=== PATIENT | male | born 1950 | race Caucasian/White ===

== ENCOUNTER 2017-05-23 01:57 | Emergency (ER) | payer OTHER, MEDICARE ==
[~2017-05-23] VITALS: Ht 170.2 cm; Wt 79.5 kg
[~2017-05-23 01:57] MED LIST: BUTA1CAP16 PO; CYA1000I IM; FLUT16SP2 NS; HYDR-3797 PO; IBUP800T28 PO; LEVO150T46 PO; LISI10TA2 PO; MORP30TA91 PO; OXYC-245 PO; SILD100T PO; TRAZ-115 PO
[2017-05-23 02:02] VITALS: BP 163/90; PULSE 91; RESP 26; O2SAT 99
[2017-05-23 02:21] LABS: BASOPHILS % (AUTO) 0.1 % (0-3); EOSINOPHILS % (AUTO) 8.7 % (0-5); MONOCYTES % (AUTO) 6.6 % (4-12); Mean Corpuscular Hemoglobin 32.3 pg (27.0-35.0); Mean Corpuscular Volume 94.2 fL (81-100); Platelet Count 239 bil/L (150-400)
--- NOTE | 2017-05-23 02:24 | ED.REPORT ---
HPI-Abd Pain M 40 and Over Date of Service May 23, 2017 ED Provider: Clyde Sharp MD Pt is a 67 y/o male w/ a hx of chronic pain with opiate dependence, HTN, presenting to the ED c/o waxing and waning right-sided abdominal pain w/ radiation to the back onset 3.5 hours ago. His pain seems to wax and wane in severity every 10-15 minutes. He c/o associated nausea. Pt denies constipation, diarrhea, bloody stools, fever, chills. The pain does not increase after eating and he has never experienced similar symptoms. The patient had an ERCP performed on 06/27/2014 for RUQ pain with a dilated common bile duct and was found to have sludge without stones and had a sphincterotomy performed. Nursing Notes Stated Complaint: STOMACH PAIN Chief Complaint: Male Abdominal Pain Nursing Notes Reviewed: Yes Allergies: Coded Allergies: No Known Allergies (Verified Allergy, Unknown, 05/23/17) Scheduled Cyanocobalamin (Cyanocobalamin Injection) 1,000 Mcg/1 Ml Vial 1,000 MCG IM Monthly Fluticasone Propionate (Flonase Nasal) 16 Gm [place].susp 2 SPRAYS NS BID Levothyroxine (Levoxyl) 150 Mcg Tablet 150 MCG PO DAILY Lisinopril (Lisinopril) 10 Mg Tablet 10 MG PO DAILY Morphine Sulfate CR (Morphine Sulfate CR) 30 Mg Tablet.er 30 MG PO Q12 Trazodone (Trazodone) 50 Mg Tablet 50 MG PO HS Scheduled PRN Butalbital/Aspirin/Caff 50-325-40 mg (Fiorinal 50-325-40 mg) 1 Each Capsule 1 EACH PO Q4 PRN PRN For Pain Hydroxyzine Pamoate (HydrOXYzine Pamoate) 25 Mg Capsule 25 MG PO Q6 PRN PRN For Spasm Ibuprofen (Ibuprofen) 800 Mg Tablet 800 MG PO QID PRN PRN For Pain Oxycodone HCl/Acetaminophen (Percocet 10-325 mg Tablet) 1 Each Tablet 1-2 EACH PO Q4 PRN PRN For Pain Sildenafil Citrate (Viagra) 100 Mg Tablet 100 MG PO UD PRN PRN OTHER General Time Seen by MD: 02:19 Chief Complaint Abdominal pain Hx Obtained From: Patient Arrived By: Walk-in Sudden in Onset?: Yes Onset Occurred: 1 - 4 hours ago Symptom Duration: Since onset Progression since Onset: Constant Location: : RLQ: RUQ Quality: Painful Radiation: : Back Severity: Current: Moderate Severity: Maximum: Severe Similar Sx Previous: No Past Medical History Past Medical History Notes: Narcotic medications: 04/05/17: Oxycodone-Acetaminophen 10-325 #180 04/05/17: Morphine Sulf ER 15 mg #60 04/05/17: Dgyvkzvbaj-QHF-Fsilhavz #90 Past Medical History Kidney stones x3 Hx hepatitis in childhood Erectile dysfunction Hypothyroid Hypertension Low back pain with sciatica Chronic neck pain Vitamin B12 deficiency Lumbar DDD Benign prostatic hypertrophy Thoracic DDD Osteoarthritis Chronic headaches Past Surgical History ERCP and sphincterotomy with sludge extraction 2014 Colonoscopy 2012 - negative Cervical vertebre fusion with a bone graft from right hip - 2000 Back x3 Right knee arthroscopy Smoking History Former Smoker Ambulatory Status Independent Review of Systems Constitutional: Denies: Chills, Fever Respiratory: Denies: Non-productive cough, Shortness of breath Cardiovascular: Denies: Chest pain GI: Reports: Abdominal pain Complete sys rev & neg: except as marked. Physical Exam Initial Vital Signs Vital Signs (First) Date Time Temp Pulse Resp B/P Pulse Ox O2 Delivery O2 Flow Rate FiO2 05/23/17 02:02 35.8 91 26 163/90 99 Room Air Initial VS: Reviewed, Vital signs abnormal Head / Eyes: Atraumatic, Normocephalic, PERRL ENT: Mucous membranes moist, Conjunctiva normal, No scleral icterus Neck: Supple, Full range of motion Extremities: Vascular intact, Neuro intact, No swelling Skin: Warm, Dry, No cyanosis Neurologic: Alert, Oriented, Nonfocal Psychiatric: Mood/affect normal, Behavior normal, Normal thought content General/Constitutional: Awake, Alert, Cooperative, Not toxic appearing Distress / Hydration: Positive: Distress moderate Appearance / Presentation: Positive: In pain, Uncomfortable Respiratory / Chest: Breath sounds NL, Breath sounds = bilat, No respiratory distress, No rales, No rhonchi, No wheezing, No retractions, No stridor Cardiovascular: Heart rate NL, Regular rhythm, Heart sounds NL, No gallop, No murmurs, No rubs, Cap refill not delayed, Peripheral circulation NL, Pulses = bilaterally Abdomen: Atraumatic, No rebound, No palpable mass, No pulsatile mass Bowel Sounds / Distention: Positive: Distention mild Diffusely tender with guarding, no localization Back: Full range of motion, Painless range of motion, No CVA tenderness Interpretation & Diagnostics Lab Results Interpretation Result Diagram: 05/23/17 0211 05/23/17 0211 Test 05/23/17 02:11 05/23/17 02:40 White Blood Count 6.7th/mm3 (3.8-10.1) Red Blood Count 4.15mil/mm3 (4.40-5.80) Hemoglobin 13.4g/dL (13.8-17.2) Hematocrit 39.1% (41.0-50.0) Mean Corpuscular Volume 94.2fL (81-100) Mean Corpuscular Hemoglobin 32.3pg (27.0-35.0) Mean Corpuscular Hemoglobin Concent 34.3% (32.0-37.0) Red Cell Distribution Width 12.2% (12.3-15.4) Platelet Count 239bil/L (150-400) Neutrophils (%) (Auto) 50.0% (40-74) Lymphocytes (%) (Auto) 34.5% (14-46) Monocytes (%) (Auto) 6.6% (4-12) Eosinophils (%) (Auto) 8.7% (0-5) Basophils (%) (Auto) 0.1% (0-3) Sodium Level 140mEq/L (134-144) Potassium Level 3.5mEq/L (3.5-5.2) Chloride Level 100mEq/L (97-108) Carbon Dioxide Level 26mmol/L (18-29) Blood Urea Nitrogen 10mg/dL (8-27) Creatinine 1.10mg/dL (0.76-1.27) Estimat Glomerular Filtration Rate 71mL/min (>59) Glucose Level 165mg/dL (60-99) Calcium Level 9.2mg/dL (8.5-10.1) Magnesium Level 1.9mg/dL (1.6-2.6) Total Bilirubin 0.2mg/dL (0.0-1.2) Aspartate Amino Transf (AST/SGOT) 20U/L (0-50) Alanine Aminotransferase (ALT/SGPT) 15U/L (0-44) Alkaline Phosphatase 63U/L (25-160) Total Protein 6.9g/dL (6.4-8.4) Albumin 4.2g/dL (3.4-5.0) Lipase 23U/L (13-60) Urine Color Yellow (YELLOW) Urine Appearance Clear (CLEAR,HAZY) Urine pH 5.0 (5.0-8.0) Urine Specific [place]le 1.025 (1.003-1.035) Urine Protein Negativemg/dL (NEG,TRACE) Urine Glucose (UA) Negativemg/dL (NEGATIVE) Urine Ketones Negativemg/dL (NEGATIVE) Urine Occult Blood Negative (NEGATIVE) Urine Nitrite Nn (NEGATIVE) Urine Bilirubin Negative (NEGATIVE) Urine Urobilinogen Normalmg/dL (NORMAL) Urine Leukocyte Esterase Negative (NEGATIVE) Urine RBC 0-2/hpf (0-2) Urine WBC 0-5/hpf (0-5) Urine Epithelial Cells Occasional/hpf (NONE-MOD) Urine Crystals None seen (NONE SEEN) Urine Bacteria None/hpf (NONE-FEW) Urine Hyaline Casts Rare/lpf (NONE) Urine Granular Casts None seen (NONE SEEN) Urine Waxy Casts None seen (NONE SEEN) Urine Red Blood Cell Casts None seen (NONE SEEN) Urine White Blood Cell Casts None seen (NONE SEEN) Urine Mucus Present (None Seen) Urine Trichomonas None seen (NONE SEEN) Urine Yeast None (NONE SEEN) Urinalysis Comment None Urine Culture Reflexed Not indicated Lab values outside NL range: no clinical significance. CT Abd / Pelvis Interpretation Conclusion: Distended hydropic gallbladder measuring 4.8 cm in diameter. No radio opaque stones or wall thickening identified. Mild urinary ladder wall thickening may be due to cystitis or bladder outlet obstruction. Interpreted by Flo Russo MD at 03:34 Study type: Abdominal CT IV contrast Interpretation / Wet Read by: Interpret - Radiologist Re-Eval/Medical Decision Med Decision/Clinical Course 67-year-old male with very high-dose chronic pain medication usage presents with abdominal pain. His pain resolved with minimal IV pain medication. His labs were all normal. His CT scan of his abdomen showed only fluid-filled gallbladder without stones or evidence of inflammation. He is encouraged to follow-up with Dr. Pedraza and/or Dr. Garcia for a planned for further evaluation and treatment. Time of Eval: 04:01 Re-Evaluation/Progress Note: Pt rechecked. Now comfortable with pain controled. Discussed CT findings. He does not get pain after eating. Counseled Regarding: Diagnosis, Lab results, Need for follow-up, When/why to return to ED Discharge & Departure Primary Impression: Enlarged gallbladder Additional Impression: Abdominal pain Abdominal location: unspecified location Qualified Code: R10.9 - Unspecified abdominal pain Disposition: Home Vital Signs - All Vital Signs Date Time Temp Pulse Resp B/P Pulse Ox O2 Delivery O2 Flow Rate FiO2 05/23/17 04:25 76 16 137/82 97 Room Air 05/23/17 02:02 35.8 91 26 163/90 99 Room Air )( All Prior VS Reviewed: Yes Condition: Stable Patient Instructions: Biliary Colic (ED) Additional Instructions: Your gallbladder is enlarged on CT scan and I suspect that this is related to your pain. Avoid large meals and fatty foods. Follow-up with Dr. Pedraza (GI) or Dr. Garcia (general surgery) to discuss the significance of CT scan and what needs to be done next. Return here if he gets significant worsening of your pain again. Resume your regular home pain medicines.. Referrals: Corinne Ghosh MD (PCP) Scribe Attestation Portions of this note were transcribed by Magno Osullivan. I, Dr. Sharp personally performed the history, physical exam and medical decision-making; I reviewed and confirmed the accuracy of the information in the transcribed note. Signed by Mark Elise, 05/23/17 - 0300 copies to: Corinne Ghosh MD, Howard L MD May 23, 2017 02:24 MAGNO OSULLIVAN May 23, 2017 02:29
[2017-05-23] MEDS ORDERED: Ketorolac 15 mg/mL Inj IVPUSH ONE (02:25)
[2017-05-23] MEDS ORDERED: Ondansetron 2 mg/mL 2 mL Inj IVPUSH PRN (02:25)
[2017-05-23] MEDS: HYDROmorphone 0.5 mg/0.5 mL iSecure Syringe IVPUSH PRN ×3 (02:28→04:24)
[2017-05-23 02:43] LABS: Magnesium 1.9 mg/dL (1.6-2.6)
[2017-05-23 02:54] LABS: APPEARANCE,URINE CLEAR (CLEAR,HAZY); COLOR,URINE YELLOW (YELLOW); OCCULT BLOOD,URINE NEGATIVE (NEGATIVE); UROBILINOGEN,URINE NORMAL (NORMAL)
[2017-05-23 04:25] VITALS: BP 137/82; PULSE 76; RESP 16; O2SAT 97
--- NOTE | 2017-05-23 07:38 | DRSVH ---
PROCEDURE: CT ABDOMEN AND PELVIS WITH CONTRAST ([id number]) INDICATIONS: severe abd pain TECHNIQUE: After the administration of intravenous contrast, 5 mm thick sections acquired from the diaphragm to the symphysis. 5 mm coronal and sagittal reformats were acquired. For radiation dose reduction, the following was used: automated exposure control, adjustment of mA and/or kV according to patient samina hernandez. COMPARISON: [facility], CT, CT ABD W CON, 06/16/2015, 10:03. FINDINGS: Image quality: Excellent. ABDOMEN: Lung bases: Lung bases are clear. Heart size is normal. Solid organs: Normal spleen. Mild intrahepatic biliary ductal dilatation otherwise the liver is oswaldo l. Common bile duct prominence measuring 1.3 cm. Gallbladder enlarged with no cholelithiasis. Panc reas enhances normally. No adrenal nodules. Kidneys demonstrate normal size and enhancement, withou t hydronephrosis. Benign left renal cyst. Peritoneum and bowel: Bowel loops demonstrate normal wall thickness and caliber. No free fluid or a ir. Nodes and vessels: No retroperitoneal or mesenteric adenopathy by size criteria. Aorta and inferior vena cava are normal in size. Miscellaneous: No ventral hernias. PELVIS: Genitourinary: Bladder wall thickness is normal. Miscellaneous: No inguinal hernias or adenopathy. Bones: No suspicious bony lesions. No vertebral body compression fractures. IMPRESSION: 1. Enlarged gallbladder with mild intra-and extrahepatic biliary ductal dilatation. No definite obstr ucting lesion identified. Please correlate with laboratory values as well as MRCP or ERCP. 2. There are no discrepancies with the preliminary report. Dictated by: Jony Bacon M.D. on 05/23/2017 at 7:32 Approved by: Jony Bacon M.D. on 05/23/2017 at 7:36
== END 2017-05-23 04:25 | disposition home or self-care (01) ==
LOC: SED 01:57
DX: K82.8 Other specified diseases of gallbladder (principal); R10.9 Unspecified abdominal pain; I10 Essential (primary) hypertension; Z87.891 Personal history of nicotine dependence; Z79.899 Other long term (current) drug therapy
CPT/HCPCS: 36415; 74177; 80053; 81000; 83690; 83735; 85025; 96374; 96375; 96376; 99285; J1170; J1885; J2405; Q9967

== ENCOUNTER 2017-05-26 21:02 | Emergency (ER) | payer OTHER, MEDICARE ==
[~2017-05-26] VITALS: Ht 170.2 cm; Wt 79.5 kg
[2017-05-26 21:05] VITALS: BP 147/83; PULSE 86; RESP 16; O2SAT 100
[2017-05-26 22:10] LABS: BASOPHILS % (AUTO) 0.3 % (0-3); EOSINOPHILS % (AUTO) 5.5 % (0-5); MONOCYTES % (AUTO) 8.5 % (4-12); Mean Corpuscular Hemoglobin 32.3 pg (27.0-35.0); Mean Corpuscular Volume 93.5 fL (81-100); NEUTROPHILS % (AUTO) 59.3 % (40-74); Platelet Count 242 bil/L (150-400)
--- NOTE | 2017-05-26 22:26 | ED.REPORT ---
HPI-Abd Pain M 40 and Over Date of Service May 26, 2017 ED Provider: Indra Cobian MD Patient is a 67 year old male with a history of hypertension, and chronic opioid dependency for back pain, who was seen at the ED on 04/19/[address] showed an abnormal gallbladder who presents to the ED complaining of worsening right upper quadrant abdominal pain onset 1430. The patient reports that the pain started after eating a bowl of cream of chicken soup. He states he did not realize a cream of chicken soup had fat in it. He had been advised to use a low-fat diet. Nursing Notes Stated Complaint: GALLBLADDER PROBLEMS Chief Complaint: Male Abdominal Pain Nursing Notes Reviewed: Yes Allergies: Coded Allergies: No Known Allergies (Verified Allergy, Unknown, 05/23/17) Scheduled Cyanocobalamin (Cyanocobalamin Injection) 1,000 Mcg/1 Ml Vial 1,000 MCG IM Monthly Fluticasone Propionate (Flonase Nasal) 16 Gm [place].susp 2 SPRAYS NS BID Levothyroxine (Levoxyl) 150 Mcg Tablet 150 MCG PO DAILY Lisinopril (Lisinopril) 10 Mg Tablet 10 MG PO DAILY Morphine Sulfate CR (Morphine Sulfate CR) 30 Mg Tablet.er 30 MG PO Q12 Omeprazole (Omeprazole) 20 Mg Tablet.dr 20 MG PO BID Trazodone (Trazodone) 50 Mg Tablet 50 MG PO HS Scheduled PRN Butalbital/Aspirin/Caff 50-325-40 mg (Fiorinal 50-325-40 mg) 1 Each Capsule 1 EACH PO Q4 PRN PRN For Pain Hydroxyzine Pamoate (HydrOXYzine Pamoate) 25 Mg Capsule 25 MG PO Q6 PRN PRN For Spasm Ibuprofen (Ibuprofen) 800 Mg Tablet 800 MG PO QID PRN PRN For Pain Oxycodone HCl/Acetaminophen (Percocet 10-325 mg Tablet) 1 Each Tablet 1-2 EACH PO Q4 PRN PRN For Pain Sildenafil Citrate (Viagra) 100 Mg Tablet 100 MG PO UD PRN PRN OTHER General Time Seen by MD: 22:16 Chief Complaint Abdominal pain Hx Obtained From: Patient Arrived By: Walk-in Sudden in Onset?: Yes Onset Occurred: 5 - 8 hours ago Context of Onset: Eating Symptom Duration: Since onset Location: : RUQ Quality: Painful Radiation: : Back Severity: Current: Moderate Recent Healthcare: No recent hospitalization, Recent doctor visit Similar Sx Previous: Yes Past Medical History Past Medical History Notes: Narcotic medications: 04/05/17: Oxycodone-Acetaminophen 10-325 #180 04/05/17: Morphine Sulf ER 15 mg #60 04/05/17: Gsdrnceoec-TAY-Eeiuwklz #90 Past Medical History Kidney stones x3 Hx hepatitis in childhood Erectile dysfunction Hypothyroid Hypertension Low back pain with sciatica Chronic neck pain Vitamin B12 deficiency Lumbar DDD Benign prostatic hypertrophy Thoracic DDD Osteoarthritis Chronic headaches Past Surgical History ERCP and sphincterotomy with sludge extraction 2014 Colonoscopy 2012 - negative Cervical vertebre fusion with a bone graft from right hip - 2000 Back x3 Right knee arthroscopy Smoking History Former Smoker Social History Other Social History: Good social support Ambulatory Status Independent Review of Systems Constitutional: Denies: Chills, Fever Respiratory: Denies: Non-productive cough, Shortness of breath GI: Reports: Abdominal pain, Denies: Nausea, Vomiting Musculoskeletal: Reports: Back pain Complete sys rev & neg: except as marked. Skin: Denies Itching, Denies Rash Physical Exam Initial Vital Signs Vital Signs (First) Date Time Temp Pulse Resp B/P Pulse Ox O2 Delivery O2 Flow Rate FiO2 05/26/17 21:05 36.4 86 16 147/83 100 Room Air Initial VS: Reviewed General/Constitutional: Awake, Alert, No acute distress Respiratory / Chest: Atraumatic, Breath sounds NL, Breath sounds = bilat, No respiratory distress Cardiovascular: Heart rate NL, Regular rhythm, Heart sounds NL Abdomen: Atraumatic, Soft, BS normoactive Tenderness/Guarding/Rebound: Positive: Tender RUQ... Back: Atraumatic, Non-tender Head / Eyes: Atraumatic, Normocephalic, PERRL, EOMI Skin: Atraumatic, Color NL, No rash, Warm, Dry Neurologic: Oriented X3, Speech NL, No motor deficits, No sensory deficits Psychiatric: Affect NL, Mood NL Interpretation & Diagnostics Interpretation & Diagnostics: ULTRASOUND ABDOMEN: Impression: Cholelithiasis, in the proper clinical setting cholecystitis should be considered. Mild intrahepatic and extrahepatic ductal dilation. The distal portion of the common bile duct was not visualized. In the proper clinical setting, nonemergent MRCP can be done for further evaluation. at 2345 Lab Results Interpretation Result Diagram: 05/26/17 22005/26/17 2205 Test 05/26/17 22:05 White Blood Count 7.0th/mm3 (3.8-10.1) Red Blood Count 4.03mil/mm3 (4.40-5.80) Hemoglobin 13.0g/dL (13.8-17.2) Hematocrit 37.7% (41.0-50.0) Mean Corpuscular Volume 93.5fL (81-100) Mean Corpuscular Hemoglobin 32.3pg (27.0-35.0) Mean Corpuscular Hemoglobin Concent 34.5% (32.0-37.0) Red Cell Distribution Width 11.9% (12.3-15.4) Platelet Count 242bil/L (150-400) Neutrophils (%) (Auto) 59.3% (40-74) Lymphocytes (%) (Auto) 26.3% (14-46) Monocytes (%) (Auto) 8.5% (4-12) Eosinophils (%) (Auto) 5.5% (0-5) Basophils (%) (Auto) 0.3% (0-3) Sodium Level 145mEq/L (134-144) Potassium Level 3.7mEq/L (3.5-5.2) Chloride Level 104mEq/L (97-108) Carbon Dioxide Level 25mmol/L (18-29) Blood Urea Nitrogen 7mg/dL (8-27) Creatinine 0.93mg/dL (0.76-1.27) Estimat Glomerular Filtration Rate 86mL/min (>59) Glucose Level 102mg/dL (60-99) Calcium Level 9.3mg/dL (8.5-10.1) Magnesium Level 2.0mg/dL (1.6-2.6) Total Bilirubin 0.3mg/dL (0.0-1.2) Aspartate Amino Transf (AST/SGOT) 60U/L (0-50) Alanine Aminotransferase (ALT/SGPT) 40U/L (0-44) Alkaline Phosphatase 95U/L (25-160) Total Protein 6.9g/dL (6.4-8.4) Albumin 3.9g/dL (3.4-5.0) Lipase 26U/L (13-60) Hold White Top Tube Received (Received) Re-Eval/Medical Decision Med Decision/Clinical Course 67-year-old with known gallstones presents with a prolonged biliary colic episode. No evidence of acute cholecystitis by virtue of thickened gallbladder wall or pericholecystic fluid or abnormal LFTs. His symptoms have resolved slowly with meds here, and he is discharged now for follow-up with his surgeon and for elective cholecystectomy as previously scheduled. Prompt return if worse. Counseled again on low-fat diet. Time of Eval: 23:32 Patient Status: Condition improved Re-Evaluation/Progress Note: Discussed ultrasound results and plan for discharge. Patient understands and agrees to plan. All questions were addressed. Counseled Regarding: Diagnosis, Lab results, Need for follow-up, When/why to return to ED Discharge & Departure Primary Impression: Biliary colic Disposition: Home Vital Signs - All Vital Signs Date Time Temp Pulse Resp B/P Pulse Ox O2 Delivery O2 Flow Rate FiO2 05/26/17 23:53 36.7 74 16 136/77 95 Room Air 05/26/17 21:05 36.4 86 16 147/83 100 Room Air )( All Prior VS Reviewed: Yes Condition: Stable Patient Instructions: Low Fat Diet (ED) Additional Instructions: Do not eat any fat, period. Begin omeprazole twice daily until surgery. Continue your current medications otherwise. Follow-up with your surgeon as planned. Return if you develop fever, uncontrolled vomiting, recurrent pain that will not go away after six hours, or other new symptoms of concern. Referrals: Corinne Ghosh MD (PCP) Mark Attestation Portions of this note were transcribed by Gracie Harman. I, Dr. Cobian personally performed the history, physical exam and medical decision-making; I reviewed and confirmed the accuracy of the information in the transcribed note. Signed by: Mark Campbell, 05/26/17 and 2230 copies to: Corinne Ghosh MD, Christopher W MD May 26, 2017 22:26 Lucrecia Harman May 26, 2017 22:30
[2017-05-26] MEDS ORDERED: Ondansetron 2 mg/mL 2 mL Inj IVPUSH ONE (22:30)
[2017-05-26] MEDS: HYDROmorphone 1 mg/mL Inj IVPUSH PRN ×2 (22:49→23:13)
[2017-05-26] MEDS ORDERED: OMEP20TA86 PO (23:38)
[2017-05-26] MEDS ORDERED: Pantoprazole 40 mg ER24 Tablet PO ONE (23:40)
[2017-05-26 23:53] VITALS: BP 136/77; PULSE 74; RESP 16; O2SAT 95
--- NOTE | 2017-05-27 08:21 | DRSVH ---
PROCEDURE: US ABDOMEN, LIMITED ([id number]) INDICATIONS: ruq pain abn ct TECHNIQUE: Real-time focused scanning was performed of the abdomen, with image documentation. COMPARISON: None. FINDINGS: The liver measures 14 cm in length and demonstrates normal echotexture. There is trace intr ahepatic biliary ductal dilatation. The common bile duct measures 7.9 mm in diameter. Layering sludge and mobile gallstones are present within the gallbladder fundus. The gallbladder wall measures 1.9 m m in thickness. No pericholecystic fluid or sonographic Valera sign. The pancreas was not visualized. The right kidney measures 10.2 cm in length. No hydronephrosis. IMPRESSION: 1. Cholelithiasis. No findings to suggest acute cholecystitis. 2. Mild intrahepatic biliary ductal dilatation and common bile duct which is the upper limits of norm al for size. Please correlate with LFTs and clinical history. Choledocholithiasis cannot be excluded. If further characterization of the biliary tree is warranted, MRCP or ERCP may be helpful. Note: [facility] final [facility] are concordant. Dictated by: Tiff Yañez M.D. on 05/27/2017 at 8:16 Approved by: Tiff Yañez M.D. on 05/27/2017 at 8:19
== END 2017-05-26 23:53 | disposition home or self-care (01) ==
LOC: SED 21:02
DX: K80.50 Calculus of bile duct without cholangitis or cholecystitis without obstruction (principal); I10 Essential (primary) hypertension; E03.9 Hypothyroidism, unspecified; Z87.442 Personal history of urinary calculi; Z87.891 Personal history of nicotine dependence
CPT/HCPCS: 36415; 76705; 80053; 83690; 83735; 85025; 96374; 96375; 99285; J1170; J1885; J2405

== ENCOUNTER 2017-06-27 05:49 | Day surgery (SDC) | payer OTHER, MEDICARE ==
[2017-06-27] VITALS (16 sets, daily range): BP systolic 121–155; BP diastolic 61–88; PULSE 62–99; RESP 6–20; O2SAT 95–100
[~2017-06-27] VITALS: Ht 170.2 cm; Wt 79.6 kg
[2017-06-27] MEDS: Lactated Ringer's 1,000 ML IV SCH ×5 (05:00→08:44)
[~2017-06-27 05:49] MED LIST changes: +CYCL10TA9 PO; +FLUT16SP NS; -FLUT16SP2 NS; +GABA-502 PO; -HYDR-3797 PO; -IBUP800T28 PO; +LISI10TA PO; -LISI10TA2 PO; -MORP30TA91 PO; +MS15TCR PO; -OXYC-245 PO; +OXYC-466 PO; -SILD100T PO; +SILD20TA14 PO; +TAMS0.4C98 PO; +ZLP10T PO
[2017-06-27] MEDS ORDERED: Dexamethasone 4 mg/mL Inj ONE (05:50)
[2017-06-27] MEDS ORDERED: Ondansetron 2 mg/mL 2 mL Inj ONE (05:50)
[2017-06-27] MEDS ORDERED: Propofol 10 mg/mL 20 mL Inj ONE (05:50)
[2017-06-27] MEDS ORDERED: Rocuronium 10 mg/mL 5 mL Inj ONE (05:50)
[2017-06-27] MEDS ORDERED: Ketamine 10 mg/mL 20 mL Inj ONE (05:50)
[2017-06-27] MEDS ORDERED: fentaNYL-PF 50 mCg/mL 2 mL Inj ONE (05:50)
[2017-06-27] MEDS ORDERED: Levofloxacin 500 mg/100 mL D5W IV ONE (06:00)
--- NOTE | 2017-06-27 07:14 | PCM.HPANE ---
Patient Data Surgeon Admitting Provider: Attending Provider:Peyton Ramirez MD Primary Care Physician:Corinne Ghosh MD Other Provider:Carl Wong Anesthesia Reason for Visit Cholecystitis Ht/WT & BMI Height (Feet): 5 Height (Inches): 7.00 Weight (Kilograms): 79.3 Body Mass Index 27.00 Allergies Coded Allergies: No Known Allergies (Verified Allergy, Unknown, 06/20/17) Past Anesthesia History Anesthesia History: Denies:: Abnormal Airway, Anesthesia Reactions, Difficult Intubation, Fam Anesthesia Reaction, Fam Malignant Hypertherm, Malignant Hyperthermia Diabetes History Hx Diabetes?: No MRSA MRSA: No Medications Blood Thinner: Aspirin Hypertension Medication: Yes Home Meds Incl Beta Santo: No Reported Medications Trazodone 50 Mg Ebgkfo248 Mg PO HS Ref 0 06/20/17 Sildenafil Citrate (Sildenafil)20 Mg Qbxvka64 Mg PO PRN erectile dysfunction 06/20/17 oxyCODONE-Acetaminophen 10-325 mg 1 Each Tablet1 Tablet PO Q6H PRN For Pain Ref 0 06/20/17 Morphine Sulfate ER (MS Contin)15 Mg Tablet.er15 Mg PO BID Ref 0 06/20/17 Lisinopril 10 Mg Titswv37 Mg PO DAILY 30 Days Ref 0 06/20/17 Levothyroxine (Levoxyl)150 Mcg Aqiktz047 Mcg PO DAILY Ref 0 06/20/17 Gabapentin 300 Mg Zssxrcy389 Mg PO BID Ref 0 06/20/17 Fluticasone Propionate (Fluticasone Propionate Nasal)16 Gm [place].susp2 [place] NS BID #16 GM Ref 0 06/20/17 Tamsulosin (Flomax)0.4 Mg Capsule0.4 Mg PO DAILY Ref 0 06/20/17 Cyclobenzaprine 10 Mg Pumgbf33 Mg PO TID PRN Spasm 06/20/17 Butalbital/Aspirin/Caff 50-325-40 mg (Fiorinal 50-325-40 mg)1 Each Capsule1 Capsule PO Q4H PRN Headache Ref 0 06/20/17 Cyanocobalamin (Cyanocobalamin Injection)1,000 Mcg/1 Ml Vial1,000 Mcg IM Monthly 06/20/17 Zolpidem (Ambien)10 Mg Zscorg23 Mg PO HS PRN For Insomnia Ref 0 06/20/17 Discontinued Reported Medications Butalbital/Aspirin/Caff 50-325-40 mg (Fiorinal 50-325-40 mg)1 Each Capsule1 Each PO Q4 PRN For Pain Ref 0 06/23/14 Oxycodone HCl/Acetaminophen (Percocet 10-325 mg Tablet)1 Each Tablet1-2 Each PO Q4 PRN For Pain Ref 0 06/23/14 Morphine Sulfate CR 30 Mg Tablet.er30 Mg PO Q12 06/23/14 Cyanocobalamin (Cyanocobalamin Injection)1,000 Mcg/1 Ml Vial1,000 Mcg IM Monthly 06/23/14 Lisinopril 10 Mg Lutwag56 Mg PO DAILY 30 Days Ref 0 06/23/14 Levothyroxine (Levoxyl)150 Mcg Wofjry999 Mcg PO DAILY 30 Days Ref 0 06/23/14 Trazodone 50 Mg Sejswc50 Mg PO HS 30 Days Ref 0 06/23/14 Fluticasone Propionate (Flonase Nasal)16 Gm [place].susp2 Sprays NS BID #16 GM Ref 0 06/23/14 Hydroxyzine Pamoate (HydrOXYzine Pamoate)25 Mg Xdvfrba50 Mg PO Q6 PRN For Spasm Ref 0 06/23/14 Ibuprofen 800 Mg Lmntgv048 Mg PO QID PRN For Pain Ref 0 06/23/14 Sildenafil Citrate (Viagra)100 Mg Xpuqxx434 Mg PO UD PRN OTHER Ref 0 06/23/14 Discontinued Scripts Omeprazole 20 Mg Tablet.dr20 Mg PO BID #30 TABLET Prov:Indra Cobian MD 05/26/17 History History of ENT Problems?: No HEENT History: Denies:: Abnormal Airway Cataracts Difficult Intubation Dysphagia Glaucoma Hearing Problem Denture Type: None Full- Upper Full- Lower Teeth Condition: Within Normal Limits Hx of Heart Problems?: Yes Cardiovascular History: Positive for:: Hypertension Denies:: AICD Atrial Fibrillation Chest Pain Heart Murmur Irregular Heartbeat Pacemaker Valvular Heart Disease Hx of Respiratory Problem?: No Respiratory History: Denies:: Asthma COPD Cough Hemoptysis Oxygen Administration Pneumonia Tuberculosis Use of C-PAP Machine Hx Neurologic Problems?: No Neurological History: Positive for:: Headaches (related to neck surgery) Denies:: CVA Dementia Multiple Sclerosis Parkinson's Disease Seizures Hx of GI Problems?: Yes Gastrointestinal History: Positive for:: Gall Bladder Disease (cholelithiasis) Denies:: Cirrhosis Diverticulitis Gastroesphageal Reflux Gastrointestinal Bleeding Heartburn Hepatitis Hiatal Hernia Liver Disease Rectal Bleeding Hx of Problems?: No Genitourinary History: Denies:: Kidney Stones Urinary Tract Infection Male Hx: Denies:: Prostate Problems Skin History: Denies:: History Skin Disorders? Hx Musculoskeletal Problems?: Yes Musculoskeletal History: Positive for:: Back Injury (neck and back surgery) Osteoarthritis (back and neck) Denies:: Fibromyalgia Joint Replacement Musculoskeletal Trauma Myasthenia Gravis Systemic Lupus Hx of Psycho/Social Problems?: Yes Psycho Social History: Positive for:: Anxiety Bipolar Disorder Denies:: Hx Depression Hx Surgeries?: Yes (tonsil, right knee scope, cervical and lumbar ) Hx Any Other Health Problems?: Yes Other History: Denies:: Cancer Thyroid Disease History Blood Transfusions: Denies:: Accept Blood Products? Blood Transfuse Reaction Blood Transfusions Hx Diabetes: No Hx Alcohol Use: NoHx Substance Use: No Smoking Status: Former Smoker Have You Smoked inLast 12 mo: No Stop/Bang Treated for Sleep Apnea?: No Do You Have a CPAP Machine?: No S-Snoring: Do You Snore Loudly: No T-Tired: feel tired, fatigued: No O-Obsered: Observed not breath: No P-Blood Pressure: treated: Yes B- Body Mass Index > 35 kg/m2: No A- Age over 50: Yes N- Neck Large Circumference: No G- Gender Male: Yes LEIA Total Score: 3 LEIA Risk Assessment: High Risk, =/>3 Yes LEIA Category 4 OutPt Procedure: Yes Risk Assessment Category Category 1A: Patient has history of documented sleep apnea, and HAS NOT received any narcotic, sedative or anesthesia administration during this stay. Category 1B: Patient has history of documented sleep apnea, and HAS received any narcotic , sedative or anesthesia administration during this stay Category 2: Patient has SUSPECTED Obstructive Sleep Apnea, and HAS received any narcotic , sedative or anesthesia administration during this stay. Category 3: Patient has SUSPECTED Obstructive Sleep Apnea and HAS NOT received narcotic, sedative or anesthesia administration during this stay. Category 4: Outpatient in Procedural Areas with known sleep apnea or who screen positive for High Risk via the STOP/BANG questionnaire. Exam Exam Vital Signs Vital Signs Date Time Temp Pulse Resp B/P Pulse Ox O2 Delivery O2 Flow Rate FiO2 06/27/17 06:32 36.2 86 18 130/70 97 Room Air General Appearance: Alert, Oriented X3, Cooperative, No Acute Distress HEENT/AIRWAY: MP 2 Lungs: Clear to Auscultation, Normal Air Movement Heart: Exam Unremarkable, Regular Rate/Rhythm, No Murmurs/Rubs/Gallops Meds/Labs/Diagnostics Admission Meds Current Medications Lactated Ringer's (Lr) 1,000 ml @ 120 mls/hr Q8H20M IV Last administered on t 06:00; Start 06/27/17 at 05:00; Stop 06/27/17 at 13:19 Plan Impression Patient chart reviewed, patient interviewed and anesthestic plan with risks, benefits, and alternatives discussed, and informed consent obtained. ASA Physical Status: ASA2 Mod Systemic Disease Anesthetic Plan: GA Bene/Risks/Altern/Consents: Yes HP Complete Prior to Induction: Yes Earl Luciano MD Jun 27, 2017 07:14
[2017-06-27] MEDS ORDERED: Bupivacaine-MPF 0.5% 30 mL Inj INJ ONE (07:30)
[2017-06-27] MEDS ORDERED: Phenylephrine 10,000 mCg/mL Inj IVPUSH PRN (07:55)
[2017-06-27] MEDS ORDERED: Lactated Ringer's 1,000 ML IV SCH (07:55)
[2017-06-27] MEDS ORDERED: Lactated Ringer's 500 ML IV PRN (07:55)
[2017-06-27] MEDS ORDERED: Dexamethasone 4 mg/mL Inj IVPUSH PRN (07:55)
[2017-06-27] MEDS ORDERED: EPHEDrine Sulfate 50 mg/mL Inj IVPUSH PRN (07:55)
[2017-06-27] MEDS: HYDROmorphone 1 mg/mL Inj IVPUSH PRN ×7 (10:27→21:54)
[2017-06-27] MEDS: Ondansetron 2 mg/mL 2 mL Inj IVPUSH PRN ×3 (10:34→18:40)
[2017-06-27] MEDS: MetoCLOpramide 5 mg/mL 2 mL Inj IVPUSH PRN ×2 (10:37→14:43)
--- NOTE | 2017-06-27 10:38 | PCM.DISURG ---
Surgical Discharge Instruction Date of Service Jun 27, 2017 Dates of Hospitalization Date of Hospital Admission Providers Admitting Physician: Primary Care Physician: Corinne Ghosh MD Attending Physician: Peyton Ramirez MD Diet Discharge Diet: No restrictions Activity Discharge Activity-General: Be up and about, Activity as pain allows, No lifting >15 pounds for 2 weeks, No driving while taking narcotic Dressing and Incisional Care Dressing Care: Allow Steri Stripes to fall off, Remove outer dressing after 24 hrs Hygiene: May shower after (24 hours), DO NOT soak incision under water, NO bathtub, hot tub or whirlpool Follow Up Plan Follow Up Plan Follow up in surgery clinic with Dr. Ramirez in 2 weeks. Call at any time with questions or concerns. Call your provider for: Fever, Chills, Increasing abdominal pain, Nausea, Vomiting, Wound redness, Increasing wound pain, Discharge @ incision, pus discharge Brock Harman MD Jun 27, 2017 10:38
[2017-06-27] MEDS: fentaNYL-PF 50 mCg/mL 2 mL Inj IVPUSH PRN ×3 (10:49→15:33)
[2017-06-27] MEDS ORDERED: Lactated Ringer's 1,000 ML IV ONE (11:17)
--- NOTE | 2017-06-27 11:23 | PCM.ANEP1 ---
Post Anesthesia PACU Phase 1 Assessment Vital Signs Vital Signs Date Time Temp Pulse Resp B/P Pulse Ox O2 Delivery O2 Flow Rate FiO2 06/27/17 10:55 65 12 132/61 97 Nasal Cannula 2 06/27/17 10:50 36.2 79 17 126/64 97 Nasal Cannula 2 06/27/17 10:45 75 17 132/61 99 Nasal Cannula 2 06/27/17 10:40 69 11 130/76 96 Room Air 06/27/17 10:35 67 20 138/85 97 Nasal Cannula 3 06/27/17 10:35 68 16 138/85 95 Room Air 06/27/17 10:30 87 12 145/85 97 Simple Mask 8 06/27/17 10:25 36.2 86 12 143/88 98 Simple Mask 8 06/27/17 06:32 36.2 86 18 130/70 97 Room Air Anesthetic Administered: GA Level of Alertness: Sleepy, easy to arouse Pain: No Nausea or Vomiting: No CV Function & Hydration Stable: Yes Airway Device: Oralpharangeal Airway Oxygen Delivery: Simple Mask Lungs: Clear to Auscultation, Normal Air Movement Dermatome Level: Full Sensation PACU Phase 2 Assessment Complications: No Follow up Care: No Patient Instructions Provided: N/A Earl Luciano MD Jun 27, 2017 11:22
[2017-06-27] MEDS: oxyCODONE-Acetamin 5-325 mg Tablet PO PRN ×3 (11:34→17:17)
--- NOTE | 2017-06-27 13:50 | OP ---
[address] [address] OPERATIVE REPORT PATIENT: ELAN GOODRICH : 1950 MR#: [id number] ADMIT: 06/27/2017 JOB ID: [id number] DATE OF SURGERY: 06/27/2017 PREOPERATIVE DIAGNOSIS(ES): Cholelithiasis. POSTOPERATIVE DIAGNOSIS(ES): Cholelithiasis with a large bile duct. PROCEDURE PERFORMED: Laparoscopic cholecystectomy with cholangiogram. SURGEON: Peyton Ramirez M.D. AUTOMATION TEST DEVELOPER: Brad Frausto and Luc Thomas PA-C COMPLICATIONS: None. CONDITION OF THE PATIENT: Stable. INDICATIONS: The patient is a 67-year-old gentleman who has been followed by Dr. Pedraza since June 2014 for right upper quadrant pain. Imaging, at that time, only revealed a dilated bile duct without obvious stones and he performed an ERCP with sphincterotomy on June 27, 2014. He went to the emergency department with severe abdominal pain on May 23, 2017, and he had a CTA again and then an ultrasound. Even though he did not have stones before the most recent ultrasound, showed sludge and gallstones within the gallbladder, and after discussing the risks, benefits, and alternatives, he is brought to the operating room for a laparoscopic cholecystectomy with cholangiogram. PROCEDURE DETAILS: He was placed in the supine position. Underwent smooth induction of general anesthesia. Abdomen was prepped and draped in the usual sterile fashion. Surgical time-out was undertaken using safety checklist, and all were in agreement. We began by making an infraumbilical incision and entered the abdomen using combination of open Stas technique and Optiview trocar. After obtaining pneumoperitoneum, I placed three 5 mm ports, two in the right upper quadrant and one in the epigastrium and upsized the umbilical port to a 12. We then retracted the gallbladder cephalad and to the right and entered the triangle of Calot anteriorly and posteriorly, and identified the cystic artery and divided it between clips. We then identified the cystic duct and as we were dissecting the cystic duct free, we did develop a tear at the gallbladder cystic duct junction. At that point we clipped the gallbladder on the specimen side and obtained a cholangiogram through the ductotomy after milking out stones from the cystic duct. The cholangiogram showed a large bile duct with good flow of contrast into the duodenum. We then clipped the cystic duct doubly on the patient's side, divided it and dissected the gallbladder off the liver bed. While we were dissecting the gallbladder off the liver bed, we did have a tear into the gallbladder due to the inflammation and also he had some bleeding from the liver bed from the traction and we obtained hemostasis with electrocautery. We then placed the gallbladder in an EndoCatch bag and irrigated and suctioned out all the fluid from the right upper quadrant. Again ensured hemostasis from the liver bed. After that, we removed the gallbladder with an EndoCatch bag through the umbilical port site and evacuated the pneumoperitoneum and closed the umbilical port fascia with [id number] 0-Vicryl sutures. Skin was reapproximated with 4-0 Monocryl. Steri-Strips and sterile dressing were applied. The patient was recovered from anesthesia and was taken to the recovery room in stable condition.
--- NOTE | 2017-06-27 14:31 | DRSVH ---
PROCEDURE: X-RAY OPERATIVE CHOLANGIOGRAM ([id number]) INDICATIONS: CHOLECYSTITIS COMPARISON: [facility], , [facility], 05/26/2017, 22:40. FINDINGS: Biliary ducts: The surgeon injected contrast into the biliary ducts after cannulation of the cystic duct stump. Visualized intra- and extrahepatic bile ducts are prominent as was noted on prior imagin g, without strictures. No intraluminal filling defects to suggest retained ductal stones or sludge. No evidence for iatrogenic ductal injury. Duodenum: Contrast flows promptly through the sphincter of Oddi into the duodenum, which appears nor mal in caliber. IMPRESSION: Prominence of the intra-and extra hepatic bile ducts redemonstrated and no definite intra luminal filling defect are seen. Dictated by: Grant Patrick [facility] Interpreted: Tiff Yañez MD on 06/27/2017 at 11:01 Approved by: Tiff Yañez M.D. on 06/27/2017 at 14:29
[2017-06-27] MEDS ORDERED: Promethazine Inj 12.5 MG in Dextrose 5%-Pha MIX 50 ML IV ONE (15:41)
[2017-06-27 17:37] LABS: BASOPHILS % (AUTO) 0 % (0-3); EOSINOPHILS % (AUTO) 0.1 % (0-5); MONOCYTES % (AUTO) 2.4 % (4-12); Mean Corpuscular Hemoglobin 32.3 pg (27.0-35.0); Mean Corpuscular Volume 93.7 fL (81-100); NEUTROPHILS % (AUTO) 90.5 % (40-74); Platelet Count 197 bil/L (150-400)
[2017-06-27] MEDS ORDERED: hydrOXYzine Inj 50 MG/1 mL SDV IM ONE ×2 (17:50→19:07)
[2017-06-27] MEDS ORDERED: EPHEDrine Sulfate 50 mg/mL Inj IM SCH (17:50)
[2017-06-27] MEDS ORDERED: EPHEDrine/NS 5 mg/mL 5 mL Syringe ONE (18:00)
[2017-06-27] MEDS ORDERED: MetoCLOpramide 5 mg/mL 2 mL Inj IVPUSH PRN (18:20)
[2017-06-27] MEDS: 0.9% Sodium Chloride 1,000 ML IV SCH (18:31)
--- NOTE | 2017-06-27 18:45 | NUR ---
Postop admit Pt comes from day Sx with uncontrolled N/V. Pt comes with 4 laps C/D/I with bandages covered. Pain 04/26 ABD. Actively nausea and wrenching. Family at bedside. Pt very anxious as well. c/o dry throat given swabs for moistening. A&OX4, Denies CP, SOB. RA 98%. Vitals stable. Zofran given which has helped. Care continues
[2017-06-28 00:18] VITALS: BP 161/74; PULSE 74; RESP 18; O2SAT 98
[2017-06-28] MEDS: Ondansetron 2 mg/mL 2 mL Inj IVPUSH PRN ×2 (00:21→11:21)
[2017-06-28] MEDS: Morphine ER 15 mg (MS Contin) Tablet PO SCH ×2 (00:22→08:28)
[2017-06-28] MEDS: HYDROmorphone 1 mg/mL Inj IVPUSH PRN (00:32)
[2017-06-28 04:36] VITALS: BP 134/80; PULSE 69; RESP 16; O2SAT 100
[2017-06-28] MEDS: 0.9% Sodium Chloride 1,000 ML IV SCH (04:37)
[2017-06-28] MEDS: oxyCODONE-Acetamin 10-325 mg Tablet PO PRN ×2 (04:40→11:21)
--- NOTE | 2017-06-28 05:05 | NUR ---
Pain Patient c/o 10/10 pain and nausea, refused Reglan preferred to wait until Zofran available (at that time 2.5 hours) given IV push pain medication. Patient became tachpyneic, given O2 oxy mask breathing returned to normal. Patient able to take oral meds at time of Zofran administration. Last rounding patient comfortable enough to comprehend pain management teaching. Care continues.
[2017-06-28 06:34] LABS: BASOPHILS % (AUTO) 0 % (0-3); EOSINOPHILS % (AUTO) 0 % (0-5); MONOCYTES % (AUTO) 9.1 % (4-12); Mean Corpuscular Hemoglobin 32.4 pg (27.0-35.0); Mean Corpuscular Volume 94.7 fL (81-100); Platelet Count 196 bil/L (150-400)
[2017-06-28] MEDS ORDERED: Fluticasone 0.05% 15 Spray/2 Gm 16 Gm Nasal Spray NASAL SCH (08:30)
--- NOTE | 2017-06-28 09:17 | PCM.DC.SUR ---
Discharge Summary Date of Service: Jun 28, 2017 Date of Hospital Admission: Date of Discharge: 06/28/2017 Operation Laparoscopic cholecystectomy with cholangiogram Brief History and Physical: The patient is a 67-year-old gentleman who has been followed by Dr. Pedraza since June 2014 for right upper quadrant pain. Imaging, at that time, only revealed a dilated bile duct without obvious stones and he performed an ERCP with sphincterotomy on June 27, 2014. He went to the emergency department with severe abdominal pain on May 23, 2017, and he had a CTA again and then an ultrasound. Even though he did not have stones before the most recent ultrasound, showed sludge and gallstones within the gallbladder, and after discussing the risks, benefits, and alternatives, he is brought to the operating room for a laparoscopic cholecystectomy with cholangiogram. Hospital Course: The patient underwent an uncomplicated laparoscopic cholecystectomy and was taken to the PACU for recovery from his general anesthetic. There, he had persistent nausea and vomiting and so was deemed to require additional IV antiemetics and inpatient observation. Over the course of the ensuing hospital stay, his nausea improved. His diet was systematically advanced with excellent tolerance. His pain was well controlled with a PO only narcotic regimen, including his home dose of MS contin. On the morning of POD#1, his exam revealed him to be in no acute distress with a soft and appropriately tender abdomen. His laparoscopic port incisions are covered by clean bandages. After a discussion of return precautions and post-operative care, he had met or exceeded all criteria for a safe discharge to home. Butalbital/Aspirin/Caff 50-325-40 mg (Fiorinal 50-325-40 mg) 1 Each Capsule 1 CAPSULE PO Q4H PRN PRN Headache (Reported) Cyanocobalamin (Cyanocobalamin Injection) 1,000 Mcg/1 Ml Vial 1,000 MCG IM Monthly (Reported) Cyclobenzaprine (Cyclobenzaprine) 10 Mg Tablet 10 MG PO TID PRN PRN Spasm ( Reported) Fluticasone Propionate (Fluticasone Propionate Nasal) 16 Gm [place].susp 2 SPRAY NS BID (Reported) Gabapentin (Gabapentin) 300 Mg Capsule 600 MG PO BID (Reported) Levothyroxine (Levoxyl) 150 Mcg Tablet 150 MCG PO DAILY (Reported) Lisinopril (Lisinopril) 10 Mg Tablet 10 MG PO DAILY (Reported) Morphine Sulfate ER (MS Contin) 15 Mg Tablet.er 15 MG PO BID (Reported) Sildenafil Citrate (Sildenafil) 20 Mg Tablet 20 MG PO PRN erectile dysfunction ( Reported) Tamsulosin (Flomax) 0.4 Mg Capsule 0.4 MG PO DAILY (Reported) Trazodone (Trazodone) 50 Mg Tablet 100 MG PO HS (Reported) Zolpidem (Ambien) 10 Mg Tablet 10 MG PO HS PRN PRN For Insomnia (Reported) oxyCODONE-Acetaminophen 10-325 mg (oxyCODONE-Acetaminophen 10-325 mg) 1 Each Tablet 1 TABLET PO Q6H PRN PRN For Pain (Reported) Brock Harman MD Jun 28, 2017 09:17
--- NOTE | 2017-06-28 12:26 | NUR ---
Discharge home discharge instructions, medication and follow-up care reviewed with patient and spouse. paperwork reviewed. All questions answered at this time. patient discharged home at 1225hrs today, driving. escorted to car via wheelchair.
--- NOTE | 2017-07-01 11:37 | PATH ---
SURGICAL PATHOLOGY Attending Physician:Peyton Ramirez MD CASE STATUS: Signed Out PATIENT NAME: ELAN GOODRICH PID: [id number] : 1950 DATE COLLECTED:06/27/2017 15:13 SPECIMEN: Gallbladder CLINICAL HISTORY: CHOLILITHIASIS, GALLSTONES 1). GALLBLADDER FINAL DIAGNOSIS: Gallbladder, Cholecystectomy: Chronic cholecystitis. Cholesterolosis. ICD10: K81.1 GROSS DESCRIPTION: The specimen is received in formalin, labeled with the patient's name, sublabeled as gallbladder, and consists of an opened gallbladder (length-6.5 cm, diameter-3.5 cm) with a patent cystic duct. No lymph nodes are identified. The serosa is allan-pink smooth and shiny. The mucosa is yellow speckled and bosselated. No calculi are present. The wall is up to 0.1 cm thick. No nodules, masses or lesions are identified. Section code: (A) gallbladder, cystic duct resection margin, 2 serial sections from the body, longitudinal section from the fundus; (B) additional hospital sales representative. 06/28/17 ICD-9 CODES: CPT CODES: 1: 53362 Electronically Signed Out Nahum Kurtz MD, Ph.D. [facility] [address] [facility], [place] [address] Technical component performed at [facility], [facility] [address], [address]
== END 2017-06-28 12:22 | disposition home or self-care (01) ==
LOC: SAS 05:49 → OSC 18:40 → SAS 06-28 12:22
PROVIDERS: ATTEND Student in an Organized Health Care Education/Training Program
DX: K80.10 Calculus of gallbladder with chronic cholecystitis without obstruction (principal); G89.18 Other acute postprocedural pain; I10 Essential (primary) hypertension; E03.9 Hypothyroidism, unspecified; F31.9 Bipolar disorder, unspecified; F41.9 Anxiety disorder, unspecified; M51.36 Other intervertebral disc degeneration, lumbar region; M50.30 Other cervical disc degeneration, unspecified cervical region; N40.0 Benign prostatic hyperplasia without lower urinary tract symptoms; M19.90 Unspecified osteoarthritis, unspecified site; M54.2 Cervicalgia; G25.81 Restless legs syndrome; K21.9 Gastro-esophageal reflux disease without esophagitis; Z86.69 Personal history of other diseases of the nervous system and sense organs; Z87.891 Personal history of nicotine dependence; Z79.82 Long term (current) use of aspirin
CPT/HCPCS: 36415; 47563; 74300; 80053; 85025; 96374; 96375; 96376; J1100; J1170; J2250; J2405; J2550; J2704; J2765; J3010; J3410; J7030; J7120; Q9967